=== PATIENT | female | born 2005 | race African-American/Black ===

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

== ENCOUNTER 2024-04-21 15:37 | Emergency (ER) | payer OTHER ==
[2024-04-21 15:57] VITALS: BP 121/72; PULSE 69; RESP 18; TEMP 98.5
[2024-04-21] MEDS ORDERED: IBUPROFEN 600 MG TABLET (FP) PO ONE (16:29)
[2024-04-21] MEDS ORDERED: ACETAMINOPHEN 500 MG TABLET (FP) ONE (16:29)
[2024-04-21] MEDS: ACETAMINOPHEN 325 MG TABLET (FP) PO ONE (16:32)
[2024-04-21] MEDS: IBUPROFEN 600 MG TABLET (FP) PO ONE (16:32)
== END 2024-04-21 16:33 | disposition home or self-care (01) ==
LOC: JERFT 15:37
DX: R51.9 Headache, unspecified (principal); V49.50XA Passenger injured in collision with unspecified motor vehicles in traffic accident, initial encounter
CPT/HCPCS: 99283-25